=== PATIENT | male | born 1965 | race Caucasian/White ===

== ENCOUNTER 2021-02-28 22:53 | Emergency (ER) | payer SELFPAY ==
[2021-02-28 22:59] VITALS: BP 137/98; PULSE 77; RESP 20; O2SAT 97
[2021-02-28 23:06] VITALS: TEMP 36.6
--- NOTE | 2021-02-28 23:38 | ECG_ITS ---
Measurements Intervals [place] Rate: 62 P: 49 NM: 192 QRS: 52 QRSD: 99 T: -2 QT: 433 QTc: 442 Interpretive Statements SINUS RHYTHM BASELINE ARTIFACT- I, II, III, AVR, AVL, AVF, V1-V6 NORMAL ECG Electronically Signed On 03-01-2021 5:48:13 CDT by Fuentes Clark D.O.
--- NOTE | 2021-03-01 00:09 | PC.NURSE ---
pt refused blood draw , states you can not draw my blood ,pt is alert to self and surouding .pt aware he is @ the hospital.
[2021-03-01 00:49] LABS: Add Urine Microscopic? NO; Appearance Urine Clear (Clear); Bilirubin Urine Negative (Negative); Blood Urine Negative (Negative); Color Urine Yellow (Yellow); Glucose Urine UA Negative (Negative); Ketones Urine Negative (Negative); Leukocyte Esterase Ur Negative LEU/UL (Negative); Nitrate Urine Negative (Negative); Protein Urine Negative (Negative); Specific Grav Ur 1.014 (1.001-1.035); Urobilinogen Urine Negative mg/dL (<2.0)
[2021-03-01] MEDS: HALOPERIDOL LACTATE 5 MG/ML VIAL IM (01:09)
[2021-03-01] MEDS: LORazepam INJ (*CRX) 2 MG/ML VIAL IM (01:10)
--- NOTE | 2021-03-01 01:10 | ED.GENADULT ---
HPI - General Adult General Chief complaint: Overdose Stated complaint: ams Time Seen by Provider: 02/28/21 23:38 Source: patient and RN notes reviewed Mode of arrival: EMS Limitations: intoxication History of Present Illness HPI narrative: This is a 55 year old male with history of hypertension and anxiety who presents for evaluation of altered mental status after THC use. Patient states tonight he smokes a pen with THC resin . HE states this was his first time using this THC. He called EMS because things started going wrong . He reports he had 2 puffs. He is unable to state any specific details. He is oriented to person, place, age and time. He denies chest pain, nausea, vomiting, or abdominal pain. He denies other drug use. Review of Systems Review of Systems: ROS unobtainable: Yes unobtainable due to mental status PMFSH Past Medical History Medical History (Updated 03/01/21 @ 06:11 by Sahara Nash MD) Anxiety Hypertension Surgical History Surgical History (Updated 03/01/21 @ 06:09 by Sahara Nash MD) No pertinent past surgical history Social History Social History Substance use type: marijuana Exam Const: General: alert Orientation/consciousness: patient oriented x3 Other: patient is restless HENMT: Head: normocephalic and atraumatic Face and sinus: normal facial exam, sinuses nontender and face symmetric Mouth: Yes Normal oral and palatal mucosa present, Yes lip normal, Yes oropharynx normal and Yes moist mucous membranes Eyes: EOM: EOMs intact bilaterally Resp: Effort & Inspection: normal respiratory effort and no retractions Auscultation: clear to auscultation bilaterally Cardio: Rate: regular rate Rhythm: regular rhythm Heart sounds: no murmurs GI: GI Palp: Yes Soft to palpation, No Tenderness to palpation present (GI) and No Guarding due to palpation present (GI) Auscultation: normal bowel sounds Skin: General skin exam: normal color Rashes: no rashes Neuro: General: patient oriented x3, moves all extremities and CN's II-XI intact bilaterally Extrem: General: normal to inspection Psych: Appearance: grossly normal Affect: Anxious affect present Course Reevaluation(s) Date: 03/01/21 Time: 01:30 Reevaluation #2: Patient states he feels better. He was able to walk to bathroom without assistance. He denies having dizziness or lightheadedness. he has not complaints. Date: 03/01/21 Time: 06:05 Vital Signs Vital signs: Vital Signs Pulse Rate 77 02/28/21 22:59 Respiratory Rate 20 02/28/21 22:59 Blood Pressure 137/98 H 02/28/21 22:59 Pulse Oximetry 97 02/28/21 22:59 Temperature 97.9 F 02/28/21 23:06 Pulse Rate 68 03/01/21 07:48 Respiratory Rate 18 03/01/21 07:48 Blood Pressure 126/73 03/01/21 07:48 Pulse Oximetry 100 03/01/21 07:48 Medical Decision Making Vital Signs Vital Signs: Vital Signs Pulse Rate 77 02/28/21 22:59 Respiratory Rate 20 02/28/21 22:59 Blood Pressure 137/98 H 02/28/21 22:59 Pulse Oximetry 97 02/28/21 22:59 Temperature 97.9 F 02/28/21 23:06 Pulse Rate 68 03/01/21 07:48 Respiratory Rate 18 03/01/21 07:48 Blood Pressure 126/73 03/01/21 07:48 Pulse Oximetry 100 03/01/21 07:48 Lab Data Lab results reviewed: Yes I reviewed the patient's lab results. Result diagrams: 03/01/21 02:22 03/01/21 02:22 Labs: Lab Results 03/01/21 03/01/21 03/01/21 Range/Units 00:40 00:40 02:22 WBC 9.7 (4.5-10.0) K/mm3 RBC 4.51 L (4.6-6.20) M/mm3 Hgb 13.2 L (14.0-18.0) g/dL Hct 40.2 L (42.0-52.0) % MCV 89.1 (80-100) fl MCH 29.3 (26-34) pg MCHC 32.8 (32-36) g/dl RDW 12.7 (11.5-14.5) % Plt Count 267 (150-375) k/mm3 MPV 9.1 (7.4-10.4) fl Immature Gran % (Auto) 0.3 (0-0.5) % Neut % (Auto) 77.5 H (45.5-73.1) % Lymph % (Auto) 14.4 L (18.3-44.2) % [place] % (Auto) 6.9 (2.6-8.5) % Eos % (Auto)
[2021-03-01 01:11] LABS: Amphetamine Screen Urine Negative (Negative); Barbiturate Screen Urine Negative (Negative); Benzodiazepines Screen Urine Negative (Negative); Cannabinoid Screen Urine Positive (Negative); Cocaine Screen Urine Negative (Negative); Methadone Screen Urine Negative (Negative); Opiate Screen Urine Negative (Negative); Phencyclidine Screen Urine Negative (Negative)
[2021-03-01 01:58] VITALS: BP 115/61; PULSE 77; O2SAT 97
[2021-03-01 02:29] LABS: Basophils Absolute Auto 0.1 K/mm3 (0.0-0.1); Basophils Percent Auto 0.8 % (0.2-1.2); Eosinophils Percent Auto 0.1 % (0-4.4); Hematocrit 40.2 % (42.0-52.0); Hemoglobin 13.2 g/dL (14.0-18.0); Immature Granulocyte Absolute 0.03 K/mm3 (0.00-0.031); Immature Granulocyte Percent A 0.3 % (0-0.5); Lymphocytes Percent Auto 14.4 % (18.3-44.2); Mean Corpuscular HGB Conc 32.8 g/dl (32-36); Mean Corpuscular Hemoglobin 29.3 pg (26-34); Mean Corpuscular Volume 89.1 fl (80-100); Mean Platelet Volume 9.1 fl (7.4-10.4); Monocytes Absolute Auto 0.7 K/mm3 (0.1-0.6); Monocytes Percent Auto 6.9 % (2.6-8.5); Neutrophils Absolute Auto 7.5 K/mm3 (1.3-6.7); Neutrophils Percent Auto 77.5 % (45.5-73.1); Platelet Count Result 267 k/mm3 (150-375); Red Blood Count 4.51 M/mm3 (4.6-6.20); Red Cell Distribution Width 12.7 % (11.5-14.5); White Blood Count 9.7 K/mm3 (4.5-10.0)
[2021-03-01 02:38] LABS: Creatine Kinase 267 U/L (55-170); Ethanol < 10 mg/dL (<10)
[2021-03-01 02:40] LABS: Alanine Aminotransferase 55 U/L (4-50); Albumin Level 3.7 g/dL (3.5-5.1); Alkaline Phosphatase 61 U/L (38-126); Anion Gap 9 mmol/L (8-16); Aspartate Amino Transferase 46 U/L (17-59); Bilirubin,Total 0.2 mg/dL (0.2-1.3); Blood Urea Nitrogen 15 mg/dL (9-20); Carbon Dioxide 23 mmol/L (22-30); Chloride 100 mmol/L (98-107); Estimated CRCL calculation 84 ml/min; Estimated Glomerular Filt Rate > 60; Glucose 168 mg/dL (65-110); Potassium 3.4 mmol/L (3.4-5.0); Sodium 132 mmol/L (137-145)
[2021-03-01 03:37] VITALS: BP 118/67; PULSE 74; RESP 20; O2SAT 98
[2021-03-01 04:48] VITALS: BP 98/47; PULSE 59; RESP 99
[2021-03-01 05:35] VITALS: BP 98/41; PULSE 63; RESP 16; O2SAT 97
[2021-03-01 06:14] VITALS: PULSE 66; RESP 16; O2SAT 98
--- NOTE | 2021-03-01 06:18 | PC.NURSE ---
called family for a ride home, pending 30 minutes
[2021-03-01 07:48] VITALS: BP 126/73; PULSE 68; RESP 18; O2SAT 100
== END 2021-03-01 07:50 | disposition home or self-care (01) ==
PROVIDERS: Emergency Provider General Practice
DX: T40.7X1A Poisoning by cannabis (derivatives), accidental (unintentional), initial encounter (principal); I10 Essential (primary) hypertension
CPT/HCPCS: 36415; 80053; 80307; 81003; 82550; 85025; 93005; 99284; J1630; J2060